=== PATIENT | female | born 1985 | race Hispanic/Latino ===

== ENCOUNTER 2022-02-22 05:20 | Inpatient (IN) | payer OTHER ==
[2022-02-22 05:37] VITALS: BMI 27.1
[2022-02-22] MEDS ORDERED: Ondansetron PF 4 MG/2 ML Vial IVP PRN ×3 (05:50→10:10)
[2022-02-22] MEDS ORDERED: Promethazine HCl 25 MG/ML VIAL IM PRN ×3 (05:50→10:10)
[2022-02-22] MEDS ORDERED: hydrALAZINE 20 MG/ML VIAL SLOW IVP PRN ×2 (05:50→10:10)
[2022-02-22] MEDS ORDERED: Famotidine/PF 20 mg/2ml Vial SLOW IVP PRN (05:50)
[2022-02-22] MEDS ORDERED: Bicitra 30 ML UDCUP PO PRN (05:50)
[2022-02-22] MEDS ORDERED: Lactated Ringer's 1,000 ML IV SCH ×2 (06:00)
[2022-02-22] MEDS ORDERED: Azithromycin 500 MG in Sodium Chloride 0.9% 250 ML 250 ML IVPB SCH (06:00)
[2022-02-22] MEDS ORDERED: ceFAZolin 2 GM/Dextrose 50 ML 2 GM in Premix Bag 1 BAG IVPB SCH (06:00)
[2022-02-22] MEDS ORDERED: CEFAZOLIN 2 GM VIAL ONE (06:03)
[2022-02-22] MEDS ORDERED: Fentanyl 250 MCG/5 ML VIAL ONE (06:15)
[2022-02-22 06:18] LABS: Mean Corpuscular HGB CONC 30.4 g/dL (32.0-36.0); Mean Corpuscular Hemoglobin 19.8 pg (27.0-33.0); Mean Corpuscular Volume 65.2 fl (81.6-98.3); Platelet Count 238 10x3/uL (150-450); RBC Distribution Width 18.4 % (11.5-14.5); Red Blood Cell (RBC) Count 4.54 10x6/uL (3.90-5.03); White Blood Cell (WBC) Count 9.3 10x3/uL (3.5-10.5)
[2022-02-22] MEDS ORDERED: Dexamethasone 4 mg/ml Vial ONE (06:20)
[2022-02-22] MEDS ORDERED: Oxytocin 10 UNITS/ML VIAL ONE (06:20)
[2022-02-22] MEDS ORDERED: Ondansetron PF 4 MG/2 ML Vial ONE (06:20)
[2022-02-22 06:49] LABS: RapidComm Collect By LD RN
[2022-02-22] MEDS ORDERED: Zolpidem Tartrate 5 MG TAB PO PRN (06:50)
[2022-02-22] MEDS ORDERED: Ondansetron HCl/PF 4 MG/2 ML Vial IVP PRN (06:50)
[2022-02-22] MEDS ORDERED: diphenhydrAMINE 50 MG/ML VIAL IM PRN (06:50)
[2022-02-22] MEDS ORDERED: Meperidine HCl/PF 25 MG/ML VIAL SLOW IVP PRN (06:50)
[2022-02-22] MEDS ORDERED: diphenhydrAMINE 25 MG CAP PO PRN ×2 (06:50→10:10)
[2022-02-22] MEDS ORDERED: fentaNYL Citrate/PF 2,000 MCG in Sodium Chloride 0.9% 60 ML IV PRN (06:50)
[2022-02-22] MEDS ORDERED: diphenhydrAMINE 50 MG/ML VIAL IVP PRN (06:50)
[2022-02-22] MEDS ORDERED: Fentanyl 100 MCG/2 ML VIAL SLOW IVP PRN (06:50)
[2022-02-22] MEDS ORDERED: Naloxone HCl 0.4 mg/ml Vial IV PRN (06:50)
[2022-02-22 06:51] LABS: RapidComm Collect By LD RN; pH (Cord, venous) 7.104 (7.250-7.350)
[2022-02-22] MEDS ORDERED: Ketorolac Tromethamine 30 MG/ML VIAL ONE (06:53)
[2022-02-22] MEDS ORDERED: CEFAZOLIN 2 GM in Sodium Chloride 0.9% 100 ML IVPB SCH (07:00)
[2022-02-22] MEDS ORDERED: Ketorolac Tromethamine 30 MG/ML VIAL IVP SCH ×2 (07:00→13:00)
[2022-02-22] MEDS ORDERED: Communication Order-Pharmacy FS SCH (07:00)
[2022-02-22 07:01] LABS: Syphilis Antibody Nonreactive (Nonreactive); Syphilis Antibody Index 0.03 S/CO (<1.00 Non-Reactive)
[2022-02-22 07:02] LABS: Hep B Surf Ag Non-Reactive S/CO (NonReactive)
[2022-02-22] MEDS ORDERED: fentaNYL Citrate/PF 1,000 MCG in Sodium Chloride 0.9% 30 ML IV PRN (07:30)
[2022-02-22] MEDS ORDERED: Bisacodyl 10 MG SUPP PR PRN (10:10)
[2022-02-22] MEDS ORDERED: Boostrix 0.5 ML (Tdap) VIAL IM ONE (10:10)
[2022-02-22] MEDS ORDERED: Lanolin Ointment 7 GM TUBE TOP PRN (10:10)
[2022-02-22 10:20] LABS: SARS-CoV-2 NAA Rapid Test Not Detected (NotDetected)
[2022-02-22] MEDS: Lactated Ringer's 1,000 ML IV SCH ×5 (11:37→23:34)
[2022-02-22] MEDS: Ketorolac Tromethamine 30 MG/ML VIAL IVP SCH ×2 (14:48→18:25)
[2022-02-22] MEDS: Simethicone Chewable 80 MG TAB PO PRN (14:59)
[2022-02-22] MEDS: metroNIDAZOLE 500 MG in Premix Bag 1 BAG IVPB SCH ×2 (15:42→23:07)
[2022-02-22] MEDS: CEFAZOLIN 2 GM in Sodium Chloride 0.9% 100 ML IVPB SCH ×2 (15:42→23:07)
[2022-02-22 18:14] LABS: Hemoglobin 6.8 g/dL (12.0-15.5); Mean Corpuscular HGB CONC 31.5 g/dL (32.0-36.0); Mean Corpuscular Hemoglobin 21.5 pg (27.0-33.0); Mean Corpuscular Volume 68.1 fl (81.6-98.3); Mean Platelet Volume 11.1 fl (7.4-10.4); Platelet Count 176 10x3/uL (150-450); RBC Distribution Width 19.6 % (11.5-14.5); Red Blood Cell (RBC) Count 3.17 10x6/uL (3.90-5.03); White Blood Cell (WBC) Count 12.1 10x3/uL (3.5-10.5)
[2022-02-22] MEDS: Docusate 100 MG CAP PO SCH (21:20)
[2022-02-22] MEDS: Ferrous Sulfate 325 MG TAB PO SCH (23:10)
[2022-02-23] MEDS: Ketorolac Tromethamine 30 MG/ML VIAL IVP SCH ×2 (00:42→06:13)
[2022-02-23] MEDS: Lactated Ringer's 1,000 ML IV SCH ×9 (00:42→15:39)
[2022-02-23] MEDS ORDERED: diphenhydrAMINE 50 MG/ML VIAL IVP PRN (02:35)
[2022-02-23] MEDS ORDERED: diphenhydrAMINE 50 MG/ML VIAL IM PRN (02:35)
[2022-02-23] MEDS ORDERED: diphenhydrAMINE 25 MG CAP PO PRN (02:35)
[2022-02-23] MEDS ORDERED: Ondansetron PF 4 MG/2 ML Vial IVP PRN (02:35)
[2022-02-23] MEDS ORDERED: Zolpidem Tartrate 5 MG TAB PO PRN (02:35)
[2022-02-23] MEDS ORDERED: Promethazine HCl 25 MG/ML VIAL IM PRN (02:35)
[2022-02-23] MEDS ORDERED: Naloxone HCl 0.4 mg/ml Vial IV PRN (02:35)
[2022-02-23] MEDS ORDERED: fentaNYL Citrate/PF 1,000 MCG in Sodium Chloride 0.9% 30 ML IV PRN (02:38)
[2022-02-23] MEDS ORDERED: Communication Order-Pharmacy FS SCH (02:45)
[2022-02-23] MEDS ORDERED: metroNIDAZOLE 500 MG/100 ML BAG ONE (06:03)
[2022-02-23] MEDS: CEFAZOLIN 2 GM in Sodium Chloride 0.9% 100 ML IVPB SCH ×3 (06:12→22:01)
[2022-02-23] MEDS: metroNIDAZOLE 500 MG in Premix Bag 1 BAG IVPB SCH ×2 (06:13→14:37)
[2022-02-23 06:23] LABS: Hemoglobin 6.9 g/dL (12.0-15.5); Mean Corpuscular HGB CONC 31.4 g/dL (32.0-36.0); Mean Corpuscular Hemoglobin 21.3 pg (27.0-33.0); Mean Corpuscular Volume 67.9 fl (81.6-98.3); Platelet Count 177 10x3/uL (150-450); RBC Distribution Width 19.9 % (11.5-14.5); Red Blood Cell (RBC) Count 3.24 10x6/uL (3.90-5.03); White Blood Cell (WBC) Count 10.3 10x3/uL (3.5-10.5)
[2022-02-23] MEDS ORDERED: HYDROcodone/Acetaminophen 5/325 mg Tablet PO PRN ×3 (07:30→16:07)
[2022-02-23] MEDS: Ferrous Sulfate 325 MG TAB PO SCH ×2 (08:24→22:02)
[2022-02-23] MEDS: Prenatal Vitamin 1 TAB PO SCH (08:24)
[2022-02-23] MEDS: Docusate 100 MG CAP PO SCH ×2 (08:25→22:02)
[2022-02-23] MEDS: Ibuprofen 800 MG TAB PO SCH ×2 (14:20→22:02)
[2022-02-23] MEDS: HYDROcodone/Acetaminophen 5/325 mg Tablet PO PRN ×2 (16:12→19:59)
[2022-02-24] MEDS: metroNIDAZOLE 500 MG in Premix Bag 1 BAG IVPB SCH ×3 (00:28→14:54)
[2022-02-24] MEDS: HYDROcodone/Acetaminophen 5/325 mg Tablet PO PRN ×4 (01:46→16:36)
[2022-02-24] MEDS: Ibuprofen 800 MG TAB PO SCH ×3 (05:29→22:05)
[2022-02-24] MEDS: CEFAZOLIN 2 GM in Sodium Chloride 0.9% 100 ML IVPB SCH ×3 (07:08→22:06)
[2022-02-24] MEDS: Lactated Ringer's 1,000 ML IV SCH ×3 (07:48→07:50)
[2022-02-24 08:13] LABS: Mean Corpuscular Hemoglobin 21.9 pg (27.0-33.0); Mean Corpuscular Volume 70.7 fl (81.6-98.3); Mean Platelet Volume 10.2 fl (7.4-10.4); Platelet Count 176 10x3/uL (150-450); RBC Distribution Width 20.7 % (11.5-14.5); Red Blood Cell (RBC) Count 3.65 10x6/uL (3.90-5.03); White Blood Cell (WBC) Count 10.4 10x3/uL (3.5-10.5)
[2022-02-24] MEDS: Ferrous Sulfate 325 MG TAB PO SCH ×2 (08:23→22:05)
[2022-02-24] MEDS: Docusate 100 MG CAP PO SCH ×2 (08:23→22:05)
[2022-02-24] MEDS: Prenatal Vitamin 1 TAB PO SCH (08:23)
[2022-02-24] MEDS: Simethicone Chewable 80 MG TAB PO PRN ×2 (08:37→22:06)
[2022-02-25] MEDS: metroNIDAZOLE 500 MG in Premix Bag 1 BAG IVPB SCH ×3 (00:10→15:33)
[2022-02-25] MEDS: HYDROcodone/Acetaminophen 5/325 mg Tablet PO PRN ×2 (00:55→08:48)
[2022-02-25] MEDS: Ibuprofen 800 MG TAB PO SCH ×2 (05:48→13:40)
[2022-02-25] MEDS: CEFAZOLIN 2 GM in Sodium Chloride 0.9% 100 ML IVPB SCH ×2 (07:55→15:33)
[2022-02-25] MEDS: Prenatal Vitamin 1 TAB PO SCH (07:56)
[2022-02-25] MEDS: Ferrous Sulfate 325 MG TAB PO SCH (07:56)
[2022-02-25] MEDS: Docusate 100 MG CAP PO SCH (07:56)
[2022-02-25 08:29] VITALS: BP 110/69; TEMP 98.6
== END 2022-02-25 17:15 | disposition home or self-care (01) | DRG 788 ==
LOC: CSHLD/OP 05:20 → CSHLD 05:56 → CSHPP 10:28
PROVIDERS: ADMIT Family Medicine; ATTEND Family Medicine
PROC: 10D00Z1 Extraction of Products of Conception, Low, Open Approach (ICD-10-PCS; principal; 2022-02-22)
PROC: 30233N1 Transfusion of Nonautologous Red Blood Cells into Peripheral Vein, Percutaneous Approach (ICD-10-PCS; 2022-02-22)
DX: O76 Abnormality in fetal heart rate and rhythm complicating labor and delivery (principal); Z3A.40 40 weeks gestation of pregnancy; Z37.0 Single live birth; Z20.822 Contact with and (suspected) exposure to COVID-19; F32.A Depression, unspecified; D64.9 Anemia, unspecified; O99.02 Anemia complicating childbirth; O99.344 Other mental disorders complicating childbirth; Z79.899 Other long term (current) drug therapy; O77.0 Labor and delivery complicated by meconium in amniotic fluid
CPT/HCPCS: 36415; 36430; 51702; 74018; 82805; 85027; 86780; 86850; 86900; 86901; 87340; 88307; 99285; J0690; J1100; J1885; J2405; J2590; J3010; J3490; J7120; P9016; U0002